=== PATIENT | female | born 1980 | race African-American/Black ===

== ENCOUNTER → 2018-03-09 | Emergency (ER) | payer SELFPAY ==
[~2018-03-09] VITALS: Ht 162.6 cm; Wt 63.5 kg
[2018-03-09 11:58] VITALS: BP 132/66
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
[2018-03-09 13:08] VITALS: BP 115/72
== END | disposition home or self-care (01) ==
LOC: EDBD 11:55 → EMR 12:12
DX: G89.29 Other chronic pain (principal); F11.20 Opioid dependence, uncomplicated; Z76.5 Malingerer [conscious simulation]; Z91.040 Latex allergy status; Z88.5 Allergy status to narcotic agent
CPT/HCPCS: 99283